=== PATIENT | female | born 1955 ===

== ENCOUNTER 2018-11-21 18:39 | Outpatient (CLI) | payer MEDICARE, MEDICAID | END 2018-11-21 18:40 | disposition home or self-care (01) | LOC: C.SLEEP 18:39 | DX: G47.33 Obstructive sleep apnea (adult) (pediatric) (principal) ==

== ENCOUNTER 2018-12-10 18:39 | Outpatient (CLI) | payer MEDICARE, MEDICAID | END 2018-12-10 18:40 | disposition home or self-care (01) | LOC: C.SLEEP 18:40 | DX: G47.33 Obstructive sleep apnea (adult) (pediatric) (principal) ==